=== PATIENT | female | born 1965 | race Hispanic/Latino ===

== ENCOUNTER 2024-06-21 13:03 | Emergency (ER) | payer OTHER ==
[~2024-06-21] VITALS: Ht 165.1 cm; Wt 76.9 kg
[~2024-06-21 13:03] MED LIST: CARAFATE1 GM PO
[2024-06-21] MEDS ORDERED: ALPRAZOLAM0.5 MG PO (14:07)
[2024-06-21] MEDS ORDERED: LIPITOR20 MG PO (14:07)
[2024-06-21] MEDS ORDERED: BUSPIRONE HCL10 MG PO (14:07)
[2024-06-21] MEDS ORDERED: OMEPRAZOLE40 MG PO (14:07)
[2024-06-21] MEDS: IBUPROFEN 400 MG TAB PO ONE (14:19)
[2024-06-21 15:14] VITALS: PULSE 82; RESP 16; TEMP 98.2; O2SAT 99
== END 2024-06-21 15:14 | disposition home or self-care (01) ==
LOC: FSED 13:21
DX: M25.531 Pain in right wrist (principal); M77.8 Other enthesopathies, not elsewhere classified; E78.5 Hyperlipidemia, unspecified; K21.9 Gastro-esophageal reflux disease without esophagitis; F41.9 Anxiety disorder, unspecified; F32.A Depression, unspecified; F17.210 Nicotine dependence, cigarettes, uncomplicated
CPT/HCPCS: 99284

== ENCOUNTER 2024-07-14 18:32 | Emergency (ER) | payer OTHER ==
[~2024-07-14] VITALS: Ht 166.4 cm; Wt 79.9 kg
[~2024-07-14 18:32] MED LIST changes: +ALPRAZOLAM0.5 MG PO; +BUSPIRONE HCL10 MG PO; +LIPITOR20 MG PO; +OMEPRAZOLE40 MG PO
[2024-07-14 18:40] VITALS: PULSE 80; RESP 20; TEMP 98.5
[2024-07-14] MEDS ORDERED: AUGMENTIN 500-1 EACH PO (19:15)
[2024-07-14] MEDS: ACETAMINOPHEN 325 MG TAB PO ONE (19:36)
[2024-07-14] MEDS: AMOXICILLIN/CLAVULANATE K 875 MG TAB PO STA (19:52)
[2024-07-14 20:15] VITALS: BP 100/52; PULSE 80; RESP 18; TEMP 98.6; O2SAT 96
== END 2024-07-14 20:15 | disposition home or self-care (01) ==
LOC: FSED 18:40
DX: K08.89 Other specified disorders of teeth and supporting structures (principal); K02.9 Dental caries, unspecified; E78.5 Hyperlipidemia, unspecified; F41.9 Anxiety disorder, unspecified; F17.210 Nicotine dependence, cigarettes, uncomplicated
CPT/HCPCS: 99282